=== PATIENT | female | born 1945 | race Asian ===

== ENCOUNTER 2018-09-14 00:46 | Emergency (ER) | payer SELFPAY ==
[~2018-09-14] VITALS: Ht 152.4 cm; Wt 59.1 kg
[2018-09-14] MEDS ORDERED: FLUT16H NASAL (01:02)
[2018-09-14] MEDS ORDERED: HYDR25TA PO (01:02)
[2018-09-14] MEDS ORDERED: ALEN70TA10 PO (01:02)
[2018-09-14] MEDS ORDERED: ASPI-556 PO (01:02)
[2018-09-14] MEDS ORDERED: AMLO-512 PO (01:02)
[2018-09-14] MEDS ORDERED: GLUC-148 PO (01:02)
[2018-09-14] MEDS ORDERED: ATOR40TA28 PO (01:02)
[2018-09-14] MEDS ORDERED: GABA-531 PO (01:02)
[2018-09-14] MEDS ORDERED: LOSA50TA64 PO (01:02)
[2018-09-14] MEDS ORDERED: CALC-1085 PO (01:02)
[2018-09-14] MEDS ORDERED: TERB250 PO (01:02)
[2018-09-14] MEDS ORDERED: OMEP20 PO (01:02)
[2018-09-14] MEDS ORDERED: POTA8TAB4 PO (01:02)
[2018-09-14 01:03] LABS: GLUCOSE,POINT OF CARE 110 MG/DL (70-110)
[2018-09-14 02:57] VITALS: BP 116/79
== END 2018-09-14 04:17 | disposition left against medical advice (07) ==
LOC: EMS 00:46
DX: L29.9 Pruritus, unspecified (principal); Z53.21 Procedure and treatment not carried out due to patient leaving prior to being seen by health care provider